=== PATIENT | female | born 1995 | race Caucasian/White ===

== ENCOUNTER 2019-10-15 18:30 | Observation (INO) | payer OTHER, SELFPAY ==
--- NOTE | 2019-10-15 18:55 | PC.NURSE ---
1849- Dr. Aguilar called. informed of pt admission. pt c/o bleeding/spotting since 1729 tonight, with pea size clot. pt feeling baby move. FHT reviewed. orders received for UA and cervical exam. will call with results.
[2019-10-15 19:00] VITALS: BP 98/58; PULSE 77
--- NOTE | 2019-10-15 19:11 | LDADM ---
This patient, Hallie Contreras, was admitted to OB Post 117 on 10/15/19 at 18:30. Plans for labor, pain management and were discussed with patient. Patient/family oriented to hospital policies and general routines including ID bracelet, bed and alarms, visiting hours, pain management, procedures, bathroom and other care routines, personal items, smoking policy, room service/diet and guest tray routines, infant security routines, and visiting hours. Patient/Family are encouraged to report perceived risks to care and to ask questions if they do not understand what they are told or what they should do. See OBIX for further documentation.
[2019-10-15 19:15] VITALS: BP 107/59; PULSE 72
[2019-10-15 19:18] LABS: Add Urine Microscopic? YES; Appearance Urine Clear (Clear); Bacteria Urine Trace /hpf; Bilirubin Urine Negative (Negative); Blood Urine 2+ (Negative); Color Urine Yellow (Yellow); Glucose Urine UA Negative (Negative); Ketones Urine Negative (Negative); Leukocyte Esterase Ur Trace LEU/UL (Negative); Mucus Urine Rare /lpf; Nitrate Urine Negative (Negative); Protein Urine Negative (Negative); RBC Urine 0-2 /hpf (0-2); Squamous Epithelial Cell Urine Few /hpf (Few); Urobilinogen Urine Negative mg/dL (<2.0); WBC Urine 0-3 /hpf
[2019-10-15 19:30] VITALS: BP 103/61; PULSE 72
--- NOTE | 2019-10-15 19:38 | PC.NURSE ---
paged Dr. Aguilar @[phone] Dr. Aguilar returned page at [phone]- UA results reveiwed. cervical exam-closed. tracing reviewed. pt to d/c home and f/u in office if any further concerns or return to OB unit.
--- NOTE | 2019-10-19 23:49 | PM.OBTRLD ---
OB - Triage/Final Diagnosis Evaluation Laboratory results: Laboratory Tests 10/15/19 19:02 Urine Color Yellow Urine Appearance Clear Urine pH 7.0 Ur Specific [place] 1.010 Urine Protein Negative Urine Glucose (UA) Negative Urine Ketones Negative Ur Blood (Man) 2+ H Urine Nitrate Negative Urine Bilirubin Negative Urine Urobilinogen Negative Leukocyte Esterase Rfl Trace H Urine RBC 0-2 Urine WBC 0-3 Ur Squamous Epith Cells Few Urine Bacteria Trace Urine Mucus Rare Final Diagnosis (1) Vaginal spotting: Code(s): N93.9 - Abnormal uterine and vaginal bleeding, unspecified Status: Acute
== END 2019-10-15 19:53 | disposition home or self-care (01) ==
PROVIDERS: Admitting Provider Obstetrics & Gynecology; Visit Provider Obstetrics & Gynecology
DX: O46.92 Antepartum hemorrhage, unspecified, second trimester (principal); Z3A.23 23 weeks gestation of pregnancy
CPT/HCPCS: 81001; G0378; G0379

== ENCOUNTER 2020-01-02 05:56 | Observation (INO) | payer OTHER, SELFPAY ==
[2020-01-02 06:15] VITALS: BMI 27.5
[2020-01-02 06:16] VITALS: BP 123/84; PULSE 89
[2020-01-02 06:30] VITALS: BP 118/83; PULSE 98
[2020-01-02 06:45] VITALS: BP 112/72; PULSE 80
[2020-01-02 07:00] VITALS: BP 113/79; PULSE 99
[2020-01-02 07:15] VITALS: BP 111/72; PULSE 88
[2020-01-02 07:48] LABS: Appearance Urine Clear (Clear); Bilirubin Urine Negative (Negative); Blood Urine Negative (Negative); Color Urine Yellow (Yellow); Glucose Urine UA Negative (Negative); Ketones Urine Negative (Negative); Leukocyte Esterase Ur 1+ LEU/UL (Negative); Nitrate Urine Negative (Negative); Protein Urine Negative (Negative); Specific Grav Ur 1.025 (1.001-1.035); Urobilinogen Urine 0.2 mg/dL (<2.0)
[2020-01-02 07:59] LABS: Add Urine Microscopic? YES; Bacteria Urine Trace /hpf; Mucus Urine Rare /lpf; RBC Urine 0-2 /hpf (0-2); Squamous Epithelial Cell Urine Moderate /hpf (Few); WBC Urine 0-3 /hpf
--- NOTE | 2020-01-02 08:19 | OBADM ---
This patient, Hallie Contreras, admitted to the OB room OB Post 116 for observation. Patient/family oriented to hospital policies and general routines including ID bracelet, bed and alarms, visiting hours, pain management, procedures, bathroom and other care routines, personal items, smoking policy, room service/diet, and visiting hours. Patient/Family are encouraged to report perceived risks to care and to ask questions if they do not understand what they are told or what they should do.
--- NOTE | 2020-01-09 07:38 | PM.OBTRLD ---
OB - Triage/Final Diagnosis Visit Information Date of evaluation: 01/02/20 Reason for evaluation: threatened labor Evaluation Laboratory results: Laboratory Tests 01/02/20 07:35 Urine Color Yellow Urine Appearance Clear Urine pH 7.0 Ur Specific [place] 1.025 Urine Protein Negative Urine Glucose (UA) Negative Urine Ketones Negative Ur Blood (Man) Negative Urine Nitrate Negative Urine Bilirubin Negative Urine Urobilinogen 0.2 Leukocyte Esterase Rfl 1+ H Urine RBC 0-2 Urine WBC 0-3 Ur Squamous Epith Cells Moderate H Urine Bacteria Trace Urine Mucus Rare
== END 2020-01-02 08:15 | disposition home or self-care (01) ==
PROVIDERS: Admitting Provider Student in an Organized Health Care Education/Training Program; PCP Internal Medicine; Visit Provider Student in an Organized Health Care Education/Training Program
DX: O26.893 Other specified pregnancy related conditions, third trimester (principal); R10.9 Unspecified abdominal pain; Z3A.34 34 weeks gestation of pregnancy
CPT/HCPCS: 81001; G0378; G0379

== ENCOUNTER 2020-01-17 11:37 | Outpatient (RCR) | payer OTHER, SELFPAY ==
[2019-12-20 17:27] VITALS: BP 111/71; PULSE 72
[2019-12-28 11:32] VITALS: BP 108/61; PULSE 79
[2020-01-09 12:46] VITALS: BP 107/70; PULSE 80
[2020-01-17 12:34] VITALS: BP 114/62; PULSE 77
== END 2020-01-26 07:53 | disposition home or self-care (01) ==
LOC: ANHOBOP 11:37
PROVIDERS: Visit Provider Obstetrics & Gynecology
DX: O26.613 Liver and biliary tract disorders in pregnancy, third trimester (principal); K83.1 Obstruction of bile duct; Z3A.32 32 weeks gestation of pregnancy; Z3A.33 33 weeks gestation of pregnancy; Z3A.35 35 weeks gestation of pregnancy; Z3A.36 36 weeks gestation of pregnancy
CPT/HCPCS: 59025

== ENCOUNTER 2020-01-24 05:55 | Inpatient (IN) | payer OTHER, SELFPAY ==
[2020-01-24] VITALS (16 sets, daily range): BP systolic 93–129; BP diastolic 57–86; PULSE 66–189; RESP 16–18; TEMP 36.7–37.1; BMI 27.5
[2020-01-24 06:56] LABS: Basophils Percent Auto 0.3 % (0.2-1.2); Eosinophils Absolute Auto 0.1 K/mm3 (0-0.3); Eosinophils Percent Auto 0.8 % (0-4.4); Hematocrit 35.5 % (37.0-47.0); Hemoglobin 12.4 g/dL (12.0-15.0); Immature Granulocyte Absolute 0.04 K/mm3 (0.00-0.031); Immature Granulocyte Percent A 0.4 % (0-0.5); Lymphocytes Absolute Auto 1.88 K/mm3 (0.9-3.2); Lymphocytes Percent Auto 18.4 % (18.3-44.2); Mean Corpuscular HGB Conc 34.9 g/dl (32-36); Mean Corpuscular Hemoglobin 30.6 pg (26-34); Mean Corpuscular Volume 87.7 fl (80-100); Mean Platelet Volume 11.1 fl (7.4-10.4); Monocytes Absolute Auto 0.7 K/mm3 (0.1-0.6); Monocytes Percent Auto 6.7 % (2.6-8.5); Neutrophils Absolute Auto 7.5 K/mm3 (1.3-6.7); Neutrophils Percent Auto 73.4 % (45.5-73.1); Platelet Count Result 265 k/mm3 (150-375); Red Blood Count 4.05 M/mm3 (4.2-5.4); Red Cell Distribution Width 12.9 % (11.5-14.5); White Blood Count 10.2 K/mm3 (4.5-10.0)
[2020-01-24] MEDS: LACTATED RINGERS 1,000 ML 125 ML IV CONT (07:27)
[2020-01-24] MEDS: OXYTOCIN 30 UNITS/NS 500 ML 30 UNITS/500 ML BAG IV CONT (07:30)
--- NOTE | 2020-01-24 07:30 | LDADM ---
This patient, Hallie Contreras, was admitted to Labor/Delivery/Recovery 103 on 01/24/20 at 05:55. Plans for labor, pain management and were discussed with patient. Patient/family oriented to hospital policies and general routines including ID bracelet, bed and alarms, visiting hours, pain management, procedures, bathroom and other care routines, personal items, smoking policy, room service/diet and guest tray routines, security routines, and visiting hours. Patient/Family are encouraged to report perceived risks to care and to ask questions if they do not understand what they are told or what they should do. See OBIX for further documentation.
[2020-01-24 08:13] LABS: Rapid Plasma Reagin Non-Reactive (NonReactive)
--- NOTE | 2020-01-24 09:39 | P.PNAN_ITS ---
Anes - Eval Pre Procedure Procedure: labor epidural Date/Time: 01/24/20 09:39 Preop Diagnosis: labor pain Pre Op Diagnosis: induction of labor Patient Data Age: 24 Gender: F Height: 5 ft 3 in Weight: 70.5 kg Last Vital Signs Temp 36.9 C 01/24/20 07:25 Pulse 72 01/24/20 09:01 BP 115/66 01/24/20 09:01 Allergies Allergy/AdvReac Type Severity Reaction Status Date / Time No Known Allergies Allergy Verified 01/17/20 12:13 Home Medications Medication Instructions Recorded Confirmed Type PNV cmb#95-ferrous fumarate-FA 1 tablet PO DAILY 01/17/20 01/24/20 History [] calcium carbonate [Tums] 200 mg PO QID PRN 01/24/20 01/24/20 History Laboratory Tests 01/24/20 01/24/20 01/24/20 06:47 06:47 06:47 WBC 10.2 K/mm3 H K/mm3 (4.5-10.0) RBC 4.05 M/mm3 L M/mm3 (4.2-5.4) Hgb 12.4 g/dL g/dL (12.0-15.0) Hct 35.5 % L % (37.0-47.0) MCV 87.7 fl fl (80-100) MCH 30.6 pg pg (26-34) MCHC 34.9 g/dl g/dl (32-36) RDW 12.9 % % (11.5-14.5) Plt Count 265 k/mm3 k/mm3 (150-375) MPV 11.1 fl H fl (7.4-10.4) Immature Gran % (Auto) 0.4 % % (0-0.5) Neut % (Auto) 73.4 % H % (45.5-73.1) Lymph % (Auto) 18.4 % % (18.3-44.2) [place] % (Auto) 6.7 % % (2.6-8.5) Eos % (Auto) 0.8 % % (0-4.4) Baso % (Auto) 0.3 % % (0.2-1.2) Lymph # (Auto) 1.88 K/mm3 K/mm3 (0.9-3.2) [place] # (Auto) 0.7 K/mm3 H K/mm3 (0.1-0.6) Eos # (Auto) 0.1 K/mm3 K/mm3 (0-0.3) Baso # (Auto) 0.0 K/mm3 K/mm3 (0.0-0.1) Abs Immat Gran (auto) 0.04 K/mm3 H K/mm3 (0.00-0.031) Absolute Neuts (auto) 7.5 K/mm3 H K/mm3 (1.3-6.7) Absolute Nucleated RBC 0.0 K/mm3 K/mm3 (0.0-0.012) Nucleated RBC % 0.0 % % (0.0-0.2) RPR Non-reactive (NonReactive) Blood Type A Positive Antibody Screen Negative Patient hx anesthesia problems: none Family hx anesthesia problems: none PMFSH Social History Social History Smoking packs per day: 0.5 Smoking cigarettes per day: 10.0 Years smoked: 5 Smoking pack-years: 2.50 Smoking status: Former smoker Tobacco type: cigarettes Substance use: never Spiritual care concerns: No Exam Day of Procedure 01/24/20 09:39
[2020-01-24] MEDS: ONDANSETRON INJ 4 MG/2 ML VIAL IV PUSH (11:23)
--- NOTE | 2020-01-24 11:29 | WPDOBADMIT ---
Obstetrics - Admit Note Admission Note: record reviewed. Additions to the history and/or subsequent changes in the physical findings follow. 24 y/o at 37 3/7 weeks with intrahepatic cholestasis of , on ursodiol, here for induction of labor. GBS neg. AVSS NST reactive TOCO: contractions irregularly ABD soft, nontender, gravid, vertex EXT nontender Cervix 4/50/-2. AROM with thin meconium. Vertex. A: IUP at 37 3/7 weeks with ICP, here for induction. Favorable cervix. P: Oxytocin. Anticipate . Peds aware of thin meconium.
[2020-01-24] MEDS: METHYLERGONOVINE MALEATE 0.2 MG/ML VIAL (11:59)
--- NOTE | 2020-01-24 12:10 | PM.OBPRVD ---
OB - Delivery Note Procedure Delivery date: 01/24/20 Procedure: Induction of labor with Manual reduction of uterine inversion Induction method: AROM and per pitocin protocol Delivery monitor: external FHT and external uterine Route of delivery: Laceration description: None Specimen: Yes (cord blood, placenta) Estimated blood loss (mL): 140 Anesthesia type: None Disposition: PACU Complications: Uterine inversion Narrative: 24 y/o at 37 3/7 weeks gestation who presented to the hospital for induction of labor. Oxytocin was administered intravenously. Amniotomy was performed with return of thinly meconium-stained fluid. Her labor progressed and her cervix dilated completely. She pushed with good effort and delivered the infant's head to the perineum, followed by the body. The baby spontaneously cried, so the nose and mouth were bulb suctioned. After a delay, the cord was clamped and cut. The infant was handed off the field. Cord blood was collected. The placenta delivered spontaneously, adherent to the inverted uterine fundus. The placenta was removed from the uterus and passed off the field. The uterus was quickly manually reduced and uterine massage employed. She received IV oxytocin and IM methergine 0.2mg. Hemostasis was excellent. The placenta was grossly normal in appearance. The usual 3 vessel cord was noted. The perineum was inspected and was intact. The cervix was visualized and was free of laceration as well. Needle and instrument counts were correct. The patient was taken to recovery room in stable condition. The went to the nursery in stable condition. I was present and scrubbed for the entire delivery. Baby Date of : 01/24/20 Time of : 11:45 Weeks of gestation at delivery: 37 Infant gender: Female Weight (pounds): 6 Weight (ounces): 12 presentation: vertex position: Left Occiput Anterior Placenta delivery description: Spontaneous and Normal Configuration cord vessel description: 3 Vessels score one minute: 8 score five minutes: 9
[2020-01-24] MEDS: OXYTOCIN 30 UNITS/NS 500 ML 30 UNITS/500 ML BAG 125 UNITS IV CONT (12:27)
[2020-01-24] MEDS: IBUPROFEN 600 MG TABLET PO ×2 (12:30→18:14)
[2020-01-24] MEDS: ceFAZolin 2 GM/D5W 50 ML 2 GM/50 ML BAG 100 GM (13:21)
[2020-01-24] MEDS: BENZOCAINE 20% AER SPR (*SP) 56 GM CAN 1 SPRAY TOPICAL (14:37)
[2020-01-24] MEDS: WITCH HAZEL 40 PADS 1 PAD TOPICAL (14:37)
--- NOTE | 2020-01-24 14:47 | PC.NURSE ---
1443- called, informed pt has had 250cc blood loss in the last 30 minutes. Fundus is firm, pitocin is running. No new orders at this time.
--- NOTE | 2020-01-24 16:47 | PC.NURSE ---
Addendum entered by Gela Levine RN 01/24/20 16:47: admitted at 1428 to room 283. Original Note: Patient transferred to post room #280 per wheelchair. Support person present. Oriented to unit, room, information board, rooming in, admission packet and security measures. Patient verbalizes understanding.
[2020-01-24] MEDS: DOCUSATE SODIUM 100 MG CAPSULE PO (18:14)
[2020-01-25] MEDS: IBUPROFEN 600 MG TABLET PO ×2 (03:30→11:22)
[2020-01-25 05:14] LABS: Hematocrit 32.6 % (37.0-47.0); Hemoglobin 10.9 g/dL (12.0-15.0)
[2020-01-25] MEDS: DOCUSATE SODIUM 100 MG CAPSULE PO (07:28)
[2020-01-25] MEDS: MULTIVIT/MIN/PREN/FOL AC/IRON TABLET 1 TAB PO (07:28)
[2020-01-25 08:30] VITALS: BP 108/68; PULSE 70; RESP 18; TEMP 36.9
--- NOTE | 2020-01-25 11:25 | PC.NURSE ---
Upon entering mother has to breast. Reviewed feeding cues, frequencies, duration of feedings, feeding elimination flow sheet, and signs of adequate intake. Reviewed positioning/alignment in cross cradle, holding breast in U hold and guided asymmetrical latch on. Discussed rational for each. was latched slightly shallow. Mother has infant in cradle, suggested to use cross cradle to assist with obtaining and maintaining deep latch for increased intake and assisting with maintaining deep latch. Infant nursed eagerly, with steady draws and occasional swallowing noted. Reviewed signs of a correct latch, effective nursing and suck swallow ratio. Infant was able] to maintain latch without discomfort to mother. Nipple care reviewed. Discussed the early 37 3/7 week infant with possible weak tone, waking to feed each feeding and stimulating to keep awake each feeding. Mother is wishing for discharge today. Mother is able to independently latch with appropriate positioning/alignment. She denies any nipple discomfort, is feeding as required and waking infant to feed if needed. Infant has had at least 7 effective feedings in the past 24 hours, and is currently meeting outcomes for weight, output, jaundice and feeding frequencies. Mother states she feels confident to continue effective at home. Reviewed transition to breast milk, signs of adequate intake, and engorgement/relief. Instructed to call ICP if intake/output less than required, keeping accurate records of output and waking to feed every three hours. Reviewed regular medications mother is taking. Information provided per Martha. Reviewed community resources on the [facility] website and in the Mom/Baby guide. Information on outpatient services provided. Mother has no further questions at this time.
--- NOTE | 2020-01-25 12:00 | PC.NURSE ---
Patient was given the opportunity to view the discharge video Mother & Baby Care, The First Two Weeks and to ask questions. Patient declined viewing the video and has been given the mother/baby guide for home reference.
--- NOTE | 2020-01-25 14:09 | PC.NURSE ---
Self care and infant care discharge instructions given including follow up visit date and time. Mother verbalized understanding. No questions or concerns voiced. Very pleasant and cooperative.
--- NOTE | 2020-01-25 15:14 | PM.OBPNVD ---
OB - PN: Subj Subjective Date/time seen: 01/25/20 15:14 Narrative: Pain OK. Would like to go home. OB - PN: Obj Data Labs CBC & Chem 7: 01/25/20 03:35 Labs: Laboratory Results - last 24 hr 01/25/20 03:35 Hgb 10.9 L Hct 32.6 L OB - PN A/P Plan Comments: A: PPD#1, doing well. P: Home to f/u 6 weeks. Exam Psych: Other: AVSS ABD soft, nontender, fundus firm EXT nontender
--- NOTE | 2020-01-25 15:16 | PM.DS ---
DS: Admitting Diagnosis Admitting Diagnosis Admitting Diagnosis: induction of labor DS: Discharge Diagnosis Discharge Diagnosis (1) (normal spontaneous vaginal delivery): Code(s): O80 - Encounter for full-term uncomplicated delivery Status: Acute DS: Data Data Completed and Pending Pending studies at discharge: Pending at discharge 01/24/20 12:33 Surgical [PTH] Routine Labs on day of discharge: Labs from last 24 hours 01/25/20 03:35 Hgb 10.9 L Hct 32.6 L Discharge Plan Discharge Attending physician on discharge: Peter Aguilar Discharging Clinician: Peter Aguilar Patient Disposition: Home, Self-Care Activity: pelvic rest Diet: regular Discharge Instructions: Call or return if temperature above 100.4? F, increased abdominal pain, increased vaginal bleeding or any new problems. Education: Mom and Baby Guide Given to: Mother Follow-Up: Call your delivering provider's office for an appointment to be seen in: 6 Weeks Mom and baby should come to the [facility] for the follow-up appointment. Appointment Date/Time: January 26, 2020 at 10:00 am What to expect at your follow-up visit: Blood Pressure Check Physical Assessment Call [phone] if you are unable to keep your appointment time. BREAST CARE: * Wear a snug supportive bra. * For engorgement discomfort: Breast Feeding: * Apply warm moist washcloths * Express milk as needed to relieve engorgement * Wear loose clothing * For sore nipples: * Identify correct latch-on * Apply warm moist washcloths before and after nursing * Air dry nipples after nursing * May apply Lansinoh cream to nipples EPISIOTOMY/PERINEAL CARE: * Until bleeding stops, use your moncho bottle after urinating * Change your pad frequently throughout the day * You may take sitz baths several times a day (fill your bathtub with warm water and soak for 20 minutes.) Do NOT bathe in the water * No tub baths until seen by your physician - You may shower ACTIVITY: * Rest as much as possible. * Do not exercise or lift anything heavier than your baby (such as laundry or other children.) * Avoid stairs or driving as much as possible. * Do not put anything into the vagina. No douching, tampons, or sexual activity until seen by physician. NOTIFY PHYSICIAN IF YOU HAVE ANY QUESTIONS OR IF ANY OF THE FOLLOWING SYMPTOMS OCCUR: * If your episiotomy becomes red, swollen, or more painful than what you have experienced in the hospital. * If your vaginal bleeding becomes foul smelling. * If your vaginal bleeding becomes more heavy than a period or if your bleeding changes from pink to bright red. However, you may pass an occasional walnut-sized clot once or twice for the first week . * If you experience a sharp, shooting pain in you calves. * If you discover a hard, reddened area on your breast or if you experience flu-like symptoms. DIET: * Eat regular, well-balanced meals. * Drink plenty of fluids daily. If , drink to thirst. Stand Alone Forms: General Discharge Information Follow-up/Referrals: Peter Aguilar MD [Physician] - (6 weeks) Discharge Medications: New ibuprofen 600 mg tablet 600 mg PO Q6H PRN (Reason: cramps) Qty: 30 RF: 0 No Action PNV cmb#95-ferrous fumarate-FA [] 28 mg iron- 800 mcg Tablet 1 tablet PO DAILY RF: 0 calcium carbonate [Tums] 200 mg calcium (500 mg) Tablet,Chewable 200 mg PO QID PRN (Reason: Heartburn) RF: 0 Date of admission: 01/24/20 05:55 Primary Care Provider: UNKNOWN,DOCTOR Admitting Provider: Peter Aguilar Attending physician on admission: Peter Aguilar
--- NOTE | 2020-01-25 16:36 | PC.NURSE ---
Moms discharge instructions given on downtime form due to inability to print packet. Pt. verbalized all understanding and directions. No questions or concerns voiced. FOB at side.
[2020-01-26 10:49] VITALS: BP 105/70; PULSE 82; RESP 20; O2SAT 100
== END 2020-01-25 16:50 | disposition home or self-care (01) | DRG 805 ==
LOC: ANHLDR 08:00 → ANHOB2 14:30
PROVIDERS: Admitting Provider Obstetrics & Gynecology; Visit Provider Obstetrics & Gynecology
DX: O77.0 Labor and delivery complicated by meconium in amniotic fluid (principal); K83.1 Obstruction of bile duct; Z37.0 Single live birth; O26.62 Liver and biliary tract disorders in childbirth; Z3A.37 37 weeks gestation of pregnancy; O99.89 Other specified diseases and conditions complicating pregnancy, childbirth and the puerperium; N85.5 Inversion of uterus
CPT/HCPCS: 36415; 85014; 85018; 85025; 86592; 86850; 86900; 86901; 88307; A9270; J0690; J2210; J2405; J2590; J7120